=== PATIENT | male | born 1935 | race Caucasian/White ===

== ENCOUNTER 2023-07-29 17:21 | Observation (INO) | payer MEDICARE ==
[2023-07-29] MEDS ORDERED: Ondansetron PF 4 MG/2 ML Vial IVP PRN (21:19)
[2023-07-29] MEDS ORDERED: Ondansetron ODT 4 MG TAB PO PRN (21:19)
[2023-07-29] MEDS ORDERED: HYDROcodone/Acetaminophen 5/325 mg Tablet PO PRN (21:19)
[2023-07-29] MEDS ORDERED: Acetaminophen 325 MG TAB PO PRN (21:19)
[2023-07-29] MEDS ORDERED: hydrALAZINE 20 MG/ML VIAL SLOW IVP PRN (21:21)
[2023-07-29 22:10] VITALS: BMI 24.0
[2023-07-29 23:36] LABS: Troponin I 0.016 ng/mL (< 0.028)
[2023-07-30 05:10] LABS: #Basophils 0.05 10x3/uL (0.0-0.2); #Monocytes 0.87 10x3/uL (0.0-1.1); %Basophils 0.7 % (0.0-2.0); %Eosinophils 4.2 % (0.0-6.0); %Lymphocytes 26.7 % (18.0-47.0); %Monocytes 12.2 % (0.0-10.0); %Neutrophils 55.8 % (40.0-75.0); Hematocrit 31.8 % (38.8-50.0); Hemoglobin 10.6 g/dL (13.5-17.5); Mean Corpuscular HGB CONC 33.3 g/dL (32.0-36.0); Mean Corpuscular Hemoglobin 30.4 pg (27.0-33.0); Mean Corpuscular Volume 91.1 fl (81.2-95.1); Mean Platelet Volume 12.2 fl (7.4-10.4); Platelet Count 139 10x3/uL (150-450); Red Blood Cell (RBC) Count 3.49 10x6/uL (4.32-5.72); White Blood Cell (WBC) Count 7.2 10x3/uL (3.5-10.5)
[2023-07-30 05:21] LABS: ALT (SGPT) 16 U/L (8-55); AST (SGOT) 20 U/L (5-34); Albumin 3.2 g/dL (3.4-4.8); Alkaline Phosphatase 77 U/L (40-110); Anion Gap 14 mmol/L (10-20); BUN (Urea Nitrogen) 31 mg/dL (8.4-25.7); Bilirubin, Total 0.5 mg/dL (0.2-1.2); Calc. Creatinine Clearance 32 mL/min (70-130); Carbon Dioxide 26 mmol/L (23-31); Cardiac Risk 3.5 (Less than 4.5); Chloride 108 mmol/L (98-107); Cholesterol 118 mg/dl (< 200 Desired); Estimated GFR 36; Globulin 2.5 g/dL (2.4-3.5); Glucose 90 mg/dL (83-110); HDL Cholesterol 34 mg/dL (>60 Neg Risk); LDL Cholesterol, Calculated 63 mg/dL; Potassium 4.2 mmol/L (3.5-5.1); Protein, Total 5.7 g/dL (5.8-8.1); Sodium 144 mmol/L (136-145); Triglycerides 104 mg/dL (Less than 150)
[2023-07-30 05:22] LABS: Troponin I 0.016 ng/mL (< 0.028)
[2023-07-30] MEDS ORDERED: Famotidine 20 MG TAB PO SCH (09:00)
[2023-07-30] MEDS: Amiodarone 200 MG TAB PO SCH (09:23)
[2023-07-30] MEDS: Heparin 5,000 UNITS/ML VIAL SC SCH (09:23)
[2023-07-30] MEDS: Pantoprazole DR 40 MG TAB PO SCH (09:23)
[2023-07-30] MEDS: Aspirin 81 mg Enteric Coated Tablet PO SCH (09:23)
[2023-07-30 11:09] LABS: Troponin I 0.015 ng/mL (< 0.028)
[2023-07-30 15:52] VITALS: TEMP 97.6
[2023-07-30 20:53] VITALS: BP 109/65
[2023-07-30] MEDS ORDERED: Rosuvastatin 20 MG TAB PO SCH (21:00)
[2023-07-30] MEDS ORDERED: Terazosin HCl 5 MG CAP PO SCH (21:00)
== END 2023-07-30 18:51 | disposition home or self-care (01) ==
LOC: CSHTELE 17:25
PROVIDERS: ADMIT Internal Medicine; ATTEND Family Medicine
DX: R53.1 Weakness (principal); R29.810 Facial weakness; I13.0 Hypertensive heart and chronic kidney disease with heart failure and stage 1 through stage 4 chronic kidney disease, or unspecified chronic kidney disease; N18.32 Chronic kidney disease, stage 3b; I50.22 Chronic systolic (congestive) heart failure; I48.20 Chronic atrial fibrillation, unspecified; E78.5 Hyperlipidemia, unspecified; N17.9 Acute kidney failure, unspecified; N40.0 Benign prostatic hyperplasia without lower urinary tract symptoms; D63.1 Anemia in chronic kidney disease; I63.9 Cerebral infarction, unspecified; I42.8 Other cardiomyopathies; I71.40 Abdominal aortic aneurysm, without rupture, unspecified; I40.0 Infective myocarditis; Z95.810 Presence of automatic (implantable) cardiac defibrillator; Z79.01 Long term (current) use of anticoagulants; Z79.82 Long term (current) use of aspirin; Z79.899 Other long term (current) drug therapy; Z98.890 Other specified postprocedural states
CPT/HCPCS: 36415; 36416; 70551; 80053; 80061; 83880; 84484; 85025; 96372; G0378; J1644